=== PATIENT | female | born 1970 | race Caucasian/White ===

== ENCOUNTER 2019-03-25 14:10 | Inpatient (IN) | payer MEDICARE, MEDICAID ==
[~2019-03-25] VITALS: Ht 177.8 cm; Wt 79.4 kg
[2019-03-25] MEDS ORDERED: FLUP1TAB8 PO (14:38)
[2019-03-25] MEDS ORDERED: LEVO112T5 PO (14:38)
--- NOTE | 2019-03-25 14:40 | NUR ---
PILI, FROM [facility], PT REFUSED ADL'S, UNABLE TO CARE FOR HERSELF, DENIES SI/HI, TO ER BED 9, HOOKED TO MONITOR, AWAITING MD MADRID.
--- NOTE | 2019-03-25 14:50 | NUR ---
ILANA WESTBROOK AT BEDSIDE
[2019-03-25 15:05] LABS: APPEARANCE,URINE Slightly Cloudy (CLEAR); BILIRUBIN,URINE SMALL (NEGATIVE); BLOOD, URINE Large Ery/uL (NEGATIVE); KETONES,URINE Trace (NEGATIVE); LEUKOCYTE ESTERASE ,URINE Negative (NEGATIVE); NITRITE, URINE Negative (NEGATIVE); PH,URINE 6.5 (5.0-8.0); PROTEIN,URINE 100 mg/dl (NEGATIVE); UGLUCOSE Negative (NEGATIVE)
[2019-03-25 15:06] LABS: COLOR,URINE Dark Yellow (YELLOW)
[2019-03-25 15:09] LABS: BACTERIA,URINE Rare /HPF (None Seen); RBC,URINE TOO NUMEROUS TO COUN /HPF (0-2); SQUAMOUS EPITHELIAL CELL,UR Few /HPF (None Seen); WBC,URINE 0-3 /HPF (0-3)
--- NOTE | 2019-03-25 16:45 | NUR ---
REPORT GIVEN TO CAROL OF GPS UNIT
[2019-03-25 17:38] VITALS: BP 135/79
[2019-03-25] MEDS ORDERED: ACETAMINOPHEN 325 MG TABLET PO PRN (18:00)
[2019-03-25] MEDS ORDERED: MAG HYDROX/AL HYDROX/SIMETH 30 ML UDC PO PRN (18:00)
[2019-03-25] MEDS ORDERED: MAGNESIUM HYDROXIDE 30 ML UDC PO PRN (18:00)
[2019-03-25] MEDS ORDERED: BLOOD SUGAR DIAGNOSTIC 1 EACH STRIP IN ONE (18:00)
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
[2019-03-25] MEDS: ZOLPIDEM TARTRATE 5 MG TABLET PO PRN (22:16)
--- NOTE | 2019-03-26 06:38 | NUR ---
GPS RN NOTE: PATIENT NOTED WITH POSSIBLE MENSTRUAL CYCLE. TEST ORDER OBTAINED NOTED AND CARRIED OUT. PADS GIVEN TO THE PATIENT. PATIENT SHOWERED. WILL CONTINUE TO MONITOR Q15 MINS FOR SAFETY
--- NOTE | 2019-03-26 06:52 | NUR ---
GPS RN NOTE: REFUSED LABS DRAW, EXPLAINED THE RISK AND BENEFIT, PATIENT STILL REFUSED. WILL FOLLOW UP IN AM
[2019-03-26] MEDS: LEVOTHYROXINE SODIUM 175 MCG TABLET PO SCH (07:30)
[2019-03-26 08:00] VITALS: BP 122/88
--- NOTE | 2019-03-26 12:30 | NUR ---
found patient on the [address] way kneeling, praying, and talking rastafarian words. Dr Chaudhari in the nursing station and aware.
--- NOTE | 2019-03-26 15:35 | NUR ---
Group Note: SW encouraged pt to attend group therapy on 03/26/19 at 2:30pm discussing anger management for when they are in the hospital and for once they are discharged but pt unable to attend due to cognitive impairment.
--- NOTE | 2019-03-26 16:00 | NUR ---
refused vital signs. explained risk and benefits but still refused
--- NOTE | 2019-03-26 16:30 | NUR ---
Initial discharge planing: Pt is homeless. SW will explore housing and placement options for pt. SW will work with pt and MD to form a safe and proper discharge.
[2019-03-26] MEDS: risperiDONE 1 MG TABLET PO SCH (17:00)
--- NOTE | 2019-03-26 17:15 | NUR ---
patient refused pm medication risperidone. explained risk and benefits x3 but still refused. Addendum: 03/26/19 at 1717 by ENA GREWAL meds opened and wasted it on medication destroyer in medroom.
--- NOTE | 2019-03-26 17:29 | NUR ---
refused blood draw. explained risk and benefits but still refused
--- NOTE | 2019-03-26 18:20 | NUR ---
rn notes found patient on the hallway again kneeling and praying saying prayer.
[2019-03-26] MEDS: LORAZEPAM 0.5 MG TABLET PO PRN (19:56)
--- NOTE | 2019-03-26 19:56 | NUR ---
GPS RN NOTES SCREAMING,VERY ANXIOUS,MEDICATED WITH ATIVAN 1MG PO,TAKEN WELL
--- NOTE | 2019-03-26 20:35 | NUR ---
GPS RN NOTES OFFERED NIGHT SHOWER BUT REFUSED.
[2019-03-26] MEDS: DIVALPROEX SODIUM 125 MG CAP.SPRINK PO SCH (21:00)
--- NOTE | 2019-03-26 22:00 | NUR ---
GPS RN NOTES REFUSED DEPAKOTE,TOOK ONLY ATIVAN 1MG PO.
--- NOTE | 2019-03-27 06:37 | NUR ---
GPS RN NOTES AWAKE,OFFERED MORNING CARE BUT REFUSED,OFFERED TO CHANGE HER HOSPITAL GOWN WITH BLOOD STAIN,FROM HER MONTHLY PERIOD BUT REFUSED.CHARGE NURSE ROSALBA FLOWERS.CLAIMED SHE WILL CLEAN HERSELF AFTER AN HOUR.
--- NOTE | 2019-03-27 07:26 | NUR ---
OPENING PT WONDERING HALLS TALKING TO SELF REPORTED THAT PT IS ON PERIOD SECOND GOWN SOILED WITH BLOOD REFUSES TO CHANGE GOWN HAID DISHEVELED WILL CONTINUE TO MONITOR
[2019-03-27 08:00] VITALS: BP 129/69
[2019-03-27] MEDS: DIVALPROEX SODIUM 125 MG CAP.SPRINK PO SCH ×3 (08:12→21:25)
[2019-03-27] MEDS: LEVOTHYROXINE SODIUM 175 MCG TABLET PO SCH (08:12)
[2019-03-27] MEDS: risperiDONE 1 MG TABLET PO SCH (08:12)
--- NOTE | 2019-03-27 08:25 | NUR ---
PT REFUSES RISPERDAL STATES IT MAKES HER CONFUSED
[2019-03-27] MEDS ORDERED: OLANZAPINE 10 MG VIAL IM ONE (09:30)
--- NOTE | 2019-03-27 10:05 | NUR ---
pt took shower and refused green gwn now dressed in street clothes black pants blue top barefooted refuses socks
[2019-03-27] MEDS: BENZTROPINE MESYLATE (1 MG) 1 MG TABLET PO SCH ×2 (12:08→16:58)
[2019-03-27] MEDS: FLUPHENAZINE HCL 10 MG TABLET PO SCH ×2 (12:08→16:58)
[2019-03-27] MEDS: LORAZEPAM 0.5 MG TABLET PO PRN ×2 (12:09→21:43)
[2019-03-27] MEDS ORDERED: FLUPHENAZINE HCL 10 MG TABLET PO SCH (13:00)
[2019-03-27 16:00] VITALS: BP 119/76
--- NOTE | 2019-03-27 17:53 | NUR ---
CLOSING PT COOPERATIVE ALL DAY MOSTLY IN ROOM BED IN LOW POSITION KEPT SAFE ALL SHIFT PT COMPLIANT WITH MEDICATION PLAN. WILL GIVEN REPORT TO PM SHIFT FOR CONTINUITY OF CARE
[2019-03-27 18:09] VITALS: BP 119/76
--- NOTE | 2019-03-27 18:20 | NUR ---
NOTE AT 1209 ONLY GAVE 0.5 MG ATIVAN
--- NOTE | 2019-03-27 19:00 | NUR ---
opening: PT IS IN THE HALLWAY PACING BACK AND FORTH, TAKING TO HERSELF WHEN RECEIVED FROM THE AM SHIFT, NO S/S OR C/O PAIN AND DISCOMFORT, CONTINUE TO MONITOR PT AND MAINTAIN SAFETY THROUGHOUT THE SHIFT.
--- NOTE | 2019-03-28 00:53 | NUR ---
NURSES NOTES : AT ABOUT 2200 PT WAS GIVEN PRN MEDS ATIVAN 1M. DUE TO PT IS VERY RESTLESS, YELLING AND SHOUTING.
[2019-03-28] MEDS: DIVALPROEX SODIUM 125 MG CAP.SPRINK PO SCH ×2 (09:03→21:05)
[2019-03-28] MEDS: FLUPHENAZINE HCL 10 MG TABLET PO SCH ×3 (09:03→16:26)
[2019-03-28] MEDS: BENZTROPINE MESYLATE (1 MG) 1 MG TABLET PO SCH ×3 (09:03→16:26)
[2019-03-28] MEDS: LORAZEPAM 0.5 MG TABLET PO PRN ×2 (09:04→18:25)
[2019-03-28] MEDS: LEVOTHYROXINE SODIUM 175 MCG TABLET PO SCH (09:04)
[2019-03-28] MEDS: CLOTRIMAZOLE 1% 15 GM TUBE TP SCH (16:27)
[2019-03-29] MEDS: LORAZEPAM 0.5 MG TABLET PO PRN ×2 (03:34→19:51)
--- NOTE | 2019-03-29 07:56 | NUR ---
GPS RN NOTE PT IS IN THE HALLWAY PACING BACK AND FORTH, TAKING TO HERSELF WHEN RECEIVED FROM THE AM SHIFT, NO S/S OR C/O PAIN AND DISCOMFORT, CONTINUE TO MONITOR PT FOR SAFETY AND BEHAVIOR Q15 MIN ,RESPIRATION EVEN AND UNLABORED ,BED IN LOWEST AND LOCKED POSITION, HAVING BREAKFAST , ABLE TO EAT SELF
[2019-03-29 08:00] VITALS: BP 135/71
[2019-03-29] MEDS: LEVOTHYROXINE SODIUM 175 MCG TABLET PO SCH (08:51)
[2019-03-29] MEDS: BENZTROPINE MESYLATE (1 MG) 1 MG TABLET PO SCH ×3 (08:52→16:40)
[2019-03-29] MEDS: DIVALPROEX SODIUM 125 MG CAP.SPRINK PO SCH ×2 (08:54→21:33)
[2019-03-29] MEDS: CLOTRIMAZOLE 1% 15 GM TUBE TP SCH ×2 (08:54→16:42)
[2019-03-29] MEDS: FLUPHENAZINE HCL 10 MG TABLET PO SCH ×3 (08:55→16:40)
--- NOTE | 2019-03-29 10:41 | NUR ---
GPS RN NOTE LOOK ANXIOUS ,OFFERED ATIVAN BUT REFUSED .OFFERED X2 ,WILL CONT TO MONITOR CLOSELY
--- NOTE | 2019-03-29 11:39 | NUR ---
GPS RN NOTE SPOKE WITH DR SHANE PSYCHIATRIST NOTIFIED THAT PATIENT HAS SHAKING HANDS, REFUSING ATIVAN PRN STATED TO TRY AGAIN AND MONITOR CLOSELY
--- NOTE | 2019-03-29 14:11 | NUR ---
GPS RN NOTE WALKING IN HALLWAY AND OCCASIONALLY GET AGITATED, WILL CONT TO MONITOR CLOSELY
[2019-03-29 16:00] VITALS: BP 125/68
--- NOTE | 2019-03-29 18:06 | NUR ---
GPS RN NOTE PATIENT IN DINNING ROOM , HAVING DINNER,ABLE TO EAT SELF ,ALL NEEDS ATTENDED ,WILL CONT TO MONITOR CLOSELY
--- NOTE | 2019-03-29 20:30 | NUR ---
RN NOTES: PT. RFUSED WEEKLY SKIN REASSESSMENT AND PHOTOGRAPH ,ENCOURAGED ,EXPLAINED RISKS AND BENEFITS STILL REFUSED, PT. STRONGLY REFUSED AND PT. BEHAVIOR VERY AGGRESSIVE, PARANOID, UNCOOPERATIVE,PARANOID, PACING IN HALLWAY.
[2019-03-29 20:35] VITALS: BP 122/88
[2019-03-29] MEDS: ZOLPIDEM TARTRATE 5 MG TABLET PO PRN (23:00)
[2019-03-30 08:00] VITALS: BP 153/79
[2019-03-30] MEDS: BENZTROPINE MESYLATE (1 MG) 1 MG TABLET PO SCH ×3 (08:34→17:03)
[2019-03-30] MEDS: DIVALPROEX SODIUM 125 MG CAP.SPRINK PO SCH ×2 (08:34→21:02)
[2019-03-30] MEDS: LEVOTHYROXINE SODIUM 175 MCG TABLET PO SCH (08:34)
[2019-03-30] MEDS: CLOTRIMAZOLE 1% 15 GM TUBE TP SCH ×2 (08:38→17:00)
[2019-03-30] MEDS: FLUPHENAZINE HCL 10 MG TABLET PO SCH ×5 (09:00→21:02)
--- NOTE | 2019-03-30 11:13 | NUR ---
PC Hearing Notification: Pt stated that there is no one to notify about the PC hearing that will take place today.
[2019-03-30] MEDS: LORAZEPAM 0.5 MG TABLET PO PRN (13:13)
--- NOTE | 2019-03-30 14:59 | NUR ---
GROUP NOTE: Pt was invited to attend group therapy on 03/30/19 at 1:30pm but was unable to participate as pt is cognitively impaired and confused.
[2019-03-30] MEDS: ZOLPIDEM TARTRATE 5 MG TABLET PO PRN (22:27)
[2019-03-30 23:00] VITALS: BP 123/74
[2019-03-31] MEDS: LEVOTHYROXINE SODIUM 175 MCG TABLET PO SCH (07:30)
[2019-03-31] MEDS: CLOTRIMAZOLE 1% 15 GM TUBE TP SCH ×2 (08:26→16:37)
[2019-03-31] MEDS: FLUPHENAZINE HCL 10 MG TABLET PO SCH ×4 (09:30→21:00)
[2019-03-31] MEDS: BENZTROPINE MESYLATE (1 MG) 1 MG TABLET PO SCH ×3 (09:30→16:35)
[2019-03-31] MEDS: DIVALPROEX SODIUM 125 MG CAP.SPRINK PO SCH ×2 (09:30→21:00)
--- NOTE | 2019-03-31 09:36 | NUR ---
WHITNEY contacted [facility] [place] [phone] and left a voicemail with Donovan Azar Engine Dynamometer Tester for callback to confirm conservatorship.
--- NOTE | 2019-03-31 11:54 | NUR ---
SNF REFERRAL: WHITNEY faxed SNF referral to [facility] Address: [address] [place] [address] for review.
--- NOTE | 2019-03-31 14:50 | NUR ---
SW received a call stating pt has been accepted to [facility] Address: [address] [place] [address]
[2019-03-31 15:55] VITALS: BP 124/66
[2019-03-31 20:30] VITALS: BP 128/76
--- NOTE | 2019-03-31 22:42 | NUR ---
gps rn notes: Patient refused night meds, explained the risk and benefits x 3 attempts but patient still refused and stated i dont want it, im not sick. Will continue to monitor q15 mins for safety
[2019-04-01] MEDS: LORAZEPAM 0.5 MG TABLET PO PRN (06:25)
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
--- NOTE | 2019-04-01 07:00 | NUR ---
PATIENT CONTRACTED FOR SAFETY, CALM, COOPERATIVE, BUT STILL A LITTLE BIT PARANOID AND ANXIOUS, WILL CONTINUE TO MONITOR Q15 MINS FOR SAFETY Addendum: 04/01/19 at 0755 by ELSIE EWING II, RN PATIENT WAS RELEASED TO [facility] AT THIS TIME.
[2019-04-01 08:00] VITALS: BP 100/79
[2019-04-01] MEDS: BENZTROPINE MESYLATE (1 MG) 1 MG TABLET PO SCH ×3 (09:35→17:09)
[2019-04-01] MEDS: LEVOTHYROXINE SODIUM 175 MCG TABLET PO SCH (09:36)
[2019-04-01] MEDS: FLUPHENAZINE HCL 10 MG TABLET PO SCH ×5 (09:36→23:20)
[2019-04-01] MEDS: DIVALPROEX SODIUM 125 MG CAP.SPRINK PO SCH ×3 (09:36→23:16)
[2019-04-01] MEDS: CLOTRIMAZOLE 1% 15 GM TUBE TP SCH ×2 (09:37→17:10)
--- NOTE | 2019-04-01 14:49 | NUR ---
pt alert, stable and visible on the unit. pt seen pacing and talking to self. pt is med compliant and isolative. pt is easily agitated when trying to engage in social interaction. pt is confuse and will continue to monitor.
[2019-04-01 16:00] VITALS: BP 115/70
[2019-04-01 20:11] VITALS: BP 127/87
--- NOTE | 2019-04-01 23:21 | NUR ---
gps rn note: Patient noted on and off refusal of medication but after explanation provided, patient finally decided to take her medication. Will continue to monitor q15 mins for safety
[2019-04-02] MEDS: LEVOTHYROXINE SODIUM 175 MCG TABLET PO SCH (07:30)
[2019-04-02] MEDS: CLOTRIMAZOLE 1% 15 GM TUBE TP SCH (07:59)
[2019-04-02 08:00] VITALS: BP 113/66
[2019-04-02] MEDS: BENZTROPINE MESYLATE (1 MG) 1 MG TABLET PO SCH (08:04)
[2019-04-02] MEDS: FLUPHENAZINE HCL 10 MG TABLET PO SCH (08:05)
[2019-04-02] MEDS: DIVALPROEX SODIUM 125 MG CAP.SPRINK PO SCH (08:05)
--- NOTE | 2019-04-02 09:27 | NUR ---
DR. ALVARADO GAVE AN ORDER TO D/C HOLD AND D/C TO [facility] AND TO FOLLOW UP WITH PSYCH AND MEDICAL DOCTORS. PT. WITHOUT DISTRESS, DENIES SUICIDAL AND HOMICIDAL.
--- NOTE | 2019-04-02 10:05 | NUR ---
GPS RN NOTES PT DISCHARGED WITH PARAMEDICS TO [facility]. PT RECEIVED DISCHARGE INSTRUCTIONS/PRESCRIPTION/BELONGINGS IN HAND/BELONGINGS LIST SIGNED. NO PICS OF WOUND-PT REFUSED. REPORT CALLED IN TO BOBBY NAVARRO AT [facility]. SAFETY MEASURES MAINTAINED.
--- NOTE | 2019-04-02 10:19 | NUR ---
DISCHARGE NOTE: Pt was discharged at 10:00am via [facility] to [facility] ([facility]) [address] [place] [address]. [place] [address] P: [phone]. Pt has no family to notify. Pts mood is paranoid with congruent affect. Pt responding to internal stimuli at baseline. Pt denied suicidal/homicidal ideation. Pt will be under the care of Psychiatrist: Dr. Chaudhari [address] [facility] [address], [place] [address] [phone] and Water Resources Technical Officer: Dr Reyes Address: [address] [facility] [address] [address] [phone]. The multidisciplinary exit care form was done, printed, signed, and given to the patient.
== END 2019-04-02 10:05 | DRG 885 ==
LOC: ER 14:23 → GPS 16:27
PROVIDERS: ADMIT Psychiatry & Neurology Psychiatry; ATTEND Internal Medicine
DX: F31.2 Bipolar disorder, current episode manic severe with psychotic features (principal); F29 Unspecified psychosis not due to a substance or known physiological condition; Z79.899 Other long term (current) drug therapy; Z73.6 Limitation of activities due to disability; R31.9 Hematuria, unspecified; Z91.19 Patient's noncompliance with other medical treatment and regimen; E03.9 Hypothyroidism, unspecified
CPT/HCPCS: 80305; 81000-TC; 84703-TC; 87081-TC; J3490

== ENCOUNTER 2019-04-12 21:30 | Inpatient (IN) | payer MEDICARE, MEDICAID ==
[~2019-04-12] VITALS: Ht 170.2 cm; Wt 95.3 kg
[~2019-04-12 21:30] MED LIST: FLUP1TAB8 PO; LEVO112T5 PO
[2019-04-12] MEDS ORDERED: LORA-258 PO (22:02)
[2019-04-12] MEDS ORDERED: DIVA250T4 PO (22:02)
[2019-04-12] MEDS ORDERED: BENZ1TAB7 PO (22:02)
[2019-04-12] MEDS ORDERED: ACET325T53 PO (22:02)
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
--- NOTE | 2019-04-12 22:23 | NUR ---
URINE COLLECTED VIA STRAIGHT CATH AND SENT TO LAB
[2019-04-12 22:28] LABS: APPEARANCE,URINE Clear (CLEAR); BILIRUBIN,URINE Negative (NEGATIVE); BLOOD, URINE Negative Ery/uL (NEGATIVE); COLOR,URINE Yellow (YELLOW); KETONES,URINE Negative (NEGATIVE); LEUKOCYTE ESTERASE ,URINE Negative (NEGATIVE); NITRITE, URINE Negative (NEGATIVE); PROTEIN,URINE Negative (NEGATIVE); UGLUCOSE Negative (NEGATIVE); UROBILINOGEN,URINE 0.2 EU/dL (0.2)
[2019-04-12 22:28] LABS: BASOPHILS # (AUTO) 0.1 /CMM (0.0-0.2); BASOPHILS % (AUTO) 0.9 % (0.0-2.0); EOSINOPHILS % (AUTO) 0.4 % (0.0-6.0); HEMATOCRIT 29 % (33-45); HEMOGLOBIN 9.7 g/dL (11.5-14.8); LYMPHOCYTES # (AUTO) 1.7 /CMM (0.8-4.8); LYMPHOCYTES % (AUTO) 23.7 % (20.0-44.0); MEAN CORPUSCULAR HGB CONC 34 g/dl (31.0-36.0); MEAN CORPUSCULAR VOLUME 90 fL (82-100); MONOCYTES # (AUTO) 0.7 /CMM (0.1-1.30); MONOCYTES % (AUTO) 9.9 % (2.0-12.0); NEUTROPHILS # (AUTO) 4.6 /CMM (1.8-8.9); NEUTROPHILS % (AUTO) 65.1 % (43.0-81.0); PLATELET COUNT (AUTO) 277 /CMM (150-450); WHITE BLOOD COUNT (AUTO) 7.1 K/uL (4.3-11.0)
[2019-04-12 22:36] LABS: CALCIUM, SERUM 8.8 mg/dL (8.5-10.1); CARBON DIOXIDE 27 mmol/L (21-32); CHLORIDE 104 mmol/L (98-107); CREATININE 0.6 mg/dL (0.6-1.3); GLUCOSE 103 mg/dL (74-106); POTASSIUM 3.9 mmol/L (3.5-5.1); SODIUM SERUM 137 mmol/L (136-145); UREA NITROGEN, BLOOD 13 mg/dL (7-18)
[2019-04-12 22:42] LABS: ALANINE AMINOTRANSFERASE 34 U/L (12-78); ALBUMIN 3.5 g/dL (3.4-5.0); ALCOHOL, BLOOD < 3 mg/dL (0-0); ALKALINE PHOSPHATASE 51 U/L (46-116); ASPARTATE AMINOTRANSFERASE 20 U/L (15-37); BILIRUBIN,DIRECT 0.1 mg/dL (0.0-0.2); BILIRUBIN,TOTAL 0.3 mg/dL (0.2-1.0); TOTAL PROTEIN, SERUM 6.6 g/dL (6.4-8.2)
[2019-04-12 22:44] LABS: ACETAMINOPHEN 0 ug/ml (10-30); SALICYLATE 1.3 mg/dL (2.8-20.0)
--- NOTE | 2019-04-12 23:33 | NUR ---
LASTING FLOORWORKER BOONE STATES WILL BE HERE IN A WHILE
--- NOTE | 2019-04-13 00:41 | NUR ---
REPORT GIVEN TO POWER CASTLE FOR CONTINUATION OF CARE.
[2019-04-13] MEDS ORDERED: LORAZEPAM 1 MG TABLET ONE (00:42)
[2019-04-13] MEDS ORDERED: LORAZEPAM 1 MG TABLET PO ONE (01:00)
[2019-04-13] MEDS ORDERED: LORAZEPAM INJ 2 MG/ML VIAL IM ONE (01:00)
[2019-04-13] MEDS ORDERED: LORAZEPAM INJ 2 MG/ML VIAL ONE (01:29)
--- NOTE | 2019-04-13 02:15 | NUR ---
PT TRANSPORTED TO [facility] BY EMT
[2019-04-13] MEDS ORDERED: ACETAMINOPHEN 325 MG TABLET PO PRN ×2 (02:30→14:00)
[2019-04-13] MEDS ORDERED: MAG HYDROX/AL HYDROX/SIMETH 30 ML UDC PO PRN (02:30)
[2019-04-13] MEDS ORDERED: MAGNESIUM HYDROXIDE 30 ML UDC PO PRN (02:30)
[2019-04-13] MEDS ORDERED: BLOOD SUGAR DIAGNOSTIC 1 EACH STRIP IN ONE (02:30)
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
[2019-04-13 03:12] VITALS: BP 130/70
--- NOTE | 2019-04-13 09:29 | NUR ---
WHITNEY contacted [facility] [address] [place] [phone] and left a voicemail with Donovan Azar Shellfish Weigher for callback to confirm conservatorship.
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
[2019-04-13] MEDS: FLUPHENAZINE HCL 10 MG TABLET PO SCH ×4 (10:00→21:00)
[2019-04-13] MEDS: BENZTROPINE MESYLATE (1 MG) 1 MG TABLET PO SCH ×2 (10:00→17:00)
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
--- NOTE | 2019-04-13 10:18 | NUR ---
RT Patient refused ekg at this time. Jes Patel aware. Will attempt again later in shift.
--- NOTE | 2019-04-13 15:51 | NUR ---
GROUP NOTE: SW encouraged pt to participate in group therapy on this present day discussing "discharge planning." Pt is unable to participate due to pt actively hallucinating and being paranoid and not wanting to talk to SW.
[2019-04-13] MEDS: LORAZEPAM 1 MG TABLET PO PRN (19:33)
[2019-04-13] MEDS: DIVALPROEX SODIUM 125 MG CAP.SPRINK PO SCH (21:00)
[2019-04-13] MEDS: ZOLPIDEM TARTRATE 10 MG TABLET PO PRN (22:29)
--- NOTE | 2019-04-14 07:04 | NUR ---
RN NOTES : PT. BEHAVIOUR VERY UNCOOPERATIVE , PARANOID, HYPERVERBAL LOUD, NOT FOLLOWING ANY REDIRECTIONS , DURING AGILE DEVELOPER REFUSED VITAL SIGNS , REFUSED NIGHT MEDS, REFUSED AM LABS , REFUSING CARE , ENCOURAGED X3 EXPLAINED RISKS AND BENEFITS, STILL STRONGLY REFUSED , WILL CONTINUITY WITH CARE .
[2019-04-14] MEDS: LEVOTHYROXINE SODIUM 112 MCG TABLET PO SCH (08:27)
[2019-04-14] MEDS: FLUPHENAZINE HCL 10 MG TABLET PO SCH ×5 (08:27→21:00)
[2019-04-14] MEDS: BENZTROPINE MESYLATE (1 MG) 1 MG TABLET PO SCH ×3 (08:27→18:00)
[2019-04-14] MEDS: DIVALPROEX SODIUM 125 MG CAP.SPRINK PO SCH ×2 (08:27→21:00)
--- NOTE | 2019-04-14 10:49 | NUR ---
ACTING OUT,YELLING,DR. ALVARADO HERE,HIT CHIP TESTER AND PRIMARY RN.INJECTION ORDERED BY DR. ALVARADO.MED GIVEN,PT IN BED AT THIS TIME,REFUSING VITAL SIGNS.
[2019-04-14] MEDS ORDERED: OLANZAPINE 10 MG VIAL IM ONE (11:00)
--- NOTE | 2019-04-14 15:52 | NUR ---
GROUP NOTE: SW encouraged pt to participate in group therapy on this present day discussing "discharge planning." Pt is unable to participate in group therapy due to being asleep after receiving an IM this morning due to her aggressive behavior.
--- NOTE | 2019-04-14 17:06 | NUR ---
REFUSED MEDS ALL DAY.
[2019-04-14] MEDS: LORAZEPAM 1 MG TABLET PO PRN (17:59)
--- NOTE | 2019-04-14 18:02 | NUR ---
REFUSED MEDS ALL DAY,NOW GETTING EXTREMELY AGITATED AND AGREED WITH LUGGER TO TAKE MEDS.ADDITIONALLY GIVEN ATIVAN 1 MG PO.
--- NOTE | 2019-04-14 20:00 | NUR ---
PATIENT ASLEEP DURING INITIAL ROUNDING. NO APPARENT DISTRESS NOTED. BREATHING NON-LABORED. ENVIRONMENTAL SAFETY CHECK DONE. BED ALARM ON, BED LOCKED AND PLACED ON LOWEST POSITION FALL RISK. SAFETY PRECAUTION OBSERVED. WILL CONTINUE TO MONTOR Q 15 MINS. FOR SAFETY AND BEHAVIOR.
[2019-04-14 20:47] VITALS: BP 116/61
--- NOTE | 2019-04-14 22:28 | NUR ---
PATIENT AWAKE, OFFERED HER NIGHT MEDS X2, AND REFUSED. SHE STATED," NO, I DON;T NEED THEM NOW, NOT AT ALL TIME."
--- NOTE | 2019-04-14 22:35 | NUR ---
PATIENT TALKS TO HERSELF NOW, HYPERVERBAL, CONFUSED, AMBULATES INSIDE HER ROOM, LOUD.
--- NOTE | 2019-04-14 22:41 | NUR ---
ACCUCHECK X1 = 108 MG.DL.
--- NOTE | 2019-04-14 23:28 | NUR ---
AMBIEN 10 MG CAP PO GIVEN.
--- NOTE | 2019-04-15 03:58 | NUR ---
PATIENT STARTS TALKING TO HERSELF AGAIN. AWAKE, RESTING IN BED.
[2019-04-15] MEDS: LORAZEPAM 1 MG TABLET PO PRN ×2 (04:03→21:22)
--- NOTE | 2019-04-15 04:06 | NUR ---
ATIVAN 1 MG TAB PO GIVEN FOR AGITATION, PATIENT IS LOUD AND AGITATED, HYPERVERBAL.
--- NOTE | 2019-04-15 07:03 | NUR ---
TOOK SLEEPING PILL PER REQUEST, SLEPT FOR 5 HRS. IRRITABLE, AGGRESSIVE, TALKS TO HERSELF, EAGER TO LEAVE HOME. HAD SHOWER. WILL CONTINUE TO MONITOR.
[2019-04-15 08:00] VITALS: BP 138/89
[2019-04-15] MEDS: BENZTROPINE MESYLATE (1 MG) 1 MG TABLET PO SCH ×2 (08:25→18:02)
[2019-04-15] MEDS: FLUPHENAZINE HCL 10 MG TABLET PO SCH ×3 (08:25→18:03)
[2019-04-15] MEDS: DIVALPROEX SODIUM 125 MG CAP.SPRINK PO SCH ×2 (08:25→21:00)
[2019-04-15] MEDS: LEVOTHYROXINE SODIUM 112 MCG TABLET PO SCH (08:25)
--- NOTE | 2019-04-15 16:20 | NUR ---
GROUP NOTE: SW encouraged pt to participate in group therapy on 04/15/19 at 2pm discussing depression. Pt is unable to participate in group therapy due to being aggressive and displaying disruptive behaviors.
--- NOTE | 2019-04-15 16:54 | NUR ---
UNCOOPERATIVE,RANTING AT TIMES IN HALLWAY.
--- NOTE | 2019-04-15 19:10 | NUR ---
REFUSED AFTERNOON VITALS.
[2019-04-15 20:00] VITALS: BP 135/90
--- NOTE | 2019-04-15 20:00 | NUR ---
RN NOTES PT. REFUSED TO HAVE HER TEMPERATURE CHECKED.. PT IS PACING IN THE HALLWAY
[2019-04-15 21:14] VITALS: BP 135/90
--- NOTE | 2019-04-15 21:22 | NUR ---
RN NOTES PT REFUSED HER DEPAKOTE AND ASKED FOR HER ATIVAN- ATIVAN 1 MG PO GIVEN ORDERED, V/S STABLE
[2019-04-16] MEDS: BENZTROPINE MESYLATE (1 MG) 1 MG TABLET PO SCH ×2 (08:11→17:57)
[2019-04-16] MEDS: DIVALPROEX SODIUM 125 MG CAP.SPRINK PO SCH ×2 (08:11→20:48)
[2019-04-16] MEDS: LEVOTHYROXINE SODIUM 112 MCG TABLET PO SCH (08:11)
[2019-04-16] MEDS: FLUPHENAZINE HCL 10 MG TABLET PO SCH ×3 (08:11→17:57)
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
[2019-04-16] MEDS ORDERED: OLANZAPINE 10 MG VIAL IM ONE (19:00)
[2019-04-16] MEDS: ZOLPIDEM TARTRATE 10 MG TABLET PO PRN (21:27)
[2019-04-16] MEDS: LORAZEPAM 1 MG TABLET PO PRN (22:28)
[2019-04-17 08:00] VITALS: BP 143/90
[2019-04-17] MEDS: DIVALPROEX SODIUM 125 MG CAP.SPRINK PO SCH ×2 (08:38→20:56)
[2019-04-17] MEDS: FLUPHENAZINE HCL 10 MG TABLET PO SCH ×5 (08:38→20:56)
[2019-04-17] MEDS: BENZTROPINE MESYLATE (1 MG) 1 MG TABLET PO SCH ×2 (08:38→16:56)
[2019-04-17] MEDS: LEVOTHYROXINE SODIUM 112 MCG TABLET PO SCH (08:39)
--- NOTE | 2019-04-17 09:32 | NUR ---
GPS/RN-NOTES PROLIXIN 10MG P.O ALREADY ADMINISTER EARLIER.
[2019-04-17 16:00] VITALS: BP 133/79
[2019-04-17] MEDS: LORAZEPAM 1 MG TABLET PO PRN (19:29)
[2019-04-17] MEDS: ZOLPIDEM TARTRATE 10 MG TABLET PO PRN (23:06)
[2019-04-18 08:00] VITALS: BP 121/76
[2019-04-18] MEDS: DIVALPROEX SODIUM 125 MG CAP.SPRINK PO SCH ×2 (09:00→21:07)
[2019-04-18] MEDS: BENZTROPINE MESYLATE (1 MG) 1 MG TABLET PO SCH ×2 (09:00→16:37)
[2019-04-18] MEDS: LEVOTHYROXINE SODIUM 112 MCG TABLET PO SCH (09:00)
[2019-04-18] MEDS: FLUPHENAZINE HCL 10 MG TABLET PO SCH ×4 (09:00→21:07)
--- NOTE | 2019-04-18 09:52 | NUR ---
RN note: Patient refused all of 0900 meds, after multiple attempts, pt continues to refuse Addendum: 04/18/19 at 1405 by JEWEL BENDER RN PATIENT REFUSED 1300 MEDS
--- NOTE | 2019-04-18 16:37 | NUR ---
PATIENT REFUSED 1700 MEDS
[2019-04-18] MEDS: LORAZEPAM 1 MG TABLET PO PRN (19:37)
[2019-04-18 20:12] VITALS: BP 134/98
[2019-04-18 23:00] VITALS: BP 130/76
[2019-04-18] MEDS: ZOLPIDEM TARTRATE 10 MG TABLET PO PRN (23:32)
--- NOTE | 2019-04-19 07:14 | NUR ---
RN NOTES : DURING SHIFT PT. BEHAVIOR VERY UNCOOPERATIVE , PARANOID ,DISHELVED, NEEDY, INTRUSIVE WITH STAFF , NOT FOLLOWING ANY REDIRECTIONS ,ENDORSE TO DAY SHIFT FOR CONITUITY OF CARE .
[2019-04-19] MEDS: LORAZEPAM 1 MG TABLET PO PRN (07:43)
--- NOTE | 2019-04-19 07:46 | NUR ---
RN NOTE- PT W ANXIETY, LOUD VOICE AND AGITATION. ATIVAN 1 MG PRN GIVEN
[2019-04-19 08:00] VITALS: BP 139/93
[2019-04-19] MEDS: FLUPHENAZINE HCL 10 MG TABLET PO SCH ×4 (08:30→21:33)
[2019-04-19] MEDS: BENZTROPINE MESYLATE (1 MG) 1 MG TABLET PO SCH ×2 (08:30→17:01)
[2019-04-19] MEDS: DIVALPROEX SODIUM 125 MG CAP.SPRINK PO SCH ×2 (08:30→21:33)
[2019-04-19] MEDS: LEVOTHYROXINE SODIUM 112 MCG TABLET PO SCH (08:31)
[2019-04-19 16:00] VITALS: BP 138/89
[2019-04-19 19:57] VITALS: BP 135/98
[2019-04-19] MEDS: ZOLPIDEM TARTRATE 10 MG TABLET PO PRN (21:59)
--- NOTE | 2019-04-20 05:32 | NUR ---
GPS-RN PATIENT REFUSED SKIN FULL BODY ASSESSMENT DESPITE EXPLAINING THE RISKS AND BENEFITS BUT PT. STILL REFUSED.
--- NOTE | 2019-04-20 08:52 | NUR ---
WHITNEY FAXED SNF REFERRAL to [facility] Address: [address] [place] [address] for review.
--- NOTE | 2019-04-20 09:00 | NUR ---
ORIENTED X2-NO COMPLAINTS OFFERED,STABLE,MED COMPLIANT BUT WITH RELUCTANCE.
--- NOTE | 2019-04-20 09:00 | NUR ---
REFUSED AM VS.
[2019-04-20] MEDS: FLUPHENAZINE HCL 10 MG TABLET PO SCH ×4 (09:11→21:11)
[2019-04-20] MEDS: DIVALPROEX SODIUM 125 MG CAP.SPRINK PO SCH ×2 (09:11→21:11)
[2019-04-20] MEDS: BENZTROPINE MESYLATE (1 MG) 1 MG TABLET PO SCH ×2 (09:12→17:29)
[2019-04-20] MEDS: LEVOTHYROXINE SODIUM 112 MCG TABLET PO SCH (09:12)
--- NOTE | 2019-04-20 15:10 | NUR ---
GROUP NOTE: SW encouraged pt to participate in group on this present day discussing "gaining insight." Pt unable to participate due to psychosis and actively hallucinating. Pt unable to participate in a group setting.
--- NOTE | 2019-04-20 15:45 | NUR ---
SW received a call from Shane, buildings and grounds coordinator from [facility] Address: [address] [place] [address] who stated that pt has been accepted to the facility.
[2019-04-20 16:00] VITALS: BP 137/80
[2019-04-20 18:39] VITALS: BP 138/89
--- NOTE | 2019-04-20 18:59 | NUR ---
NO CHANGE IN STATUS.
[2019-04-20] MEDS: LORAZEPAM 1 MG TABLET PO PRN (19:36)
[2019-04-20 20:26] VITALS: BP 158/71
[2019-04-20] MEDS: ZOLPIDEM TARTRATE 10 MG TABLET PO PRN (22:12)
[2019-04-21] MEDS: DIVALPROEX SODIUM 125 MG CAP.SPRINK PO SCH (08:13)
[2019-04-21] MEDS: BENZTROPINE MESYLATE (1 MG) 1 MG TABLET PO SCH (08:13)
[2019-04-21] MEDS: LEVOTHYROXINE SODIUM 112 MCG TABLET PO SCH (08:13)
[2019-04-21] MEDS: FLUPHENAZINE HCL 10 MG TABLET PO SCH ×2 (08:13→12:01)
--- NOTE | 2019-04-21 09:30 | NUR ---
SW received a call from Shane, admissions manager rn from [facility] Address: [address] [place] [address] who stated that currently there is no bed available for pt.
--- NOTE | 2019-04-21 09:49 | NUR ---
WHITNEY FAXED SNF referral to [facility] Address: [address] [facility], [place] [address] for review.
--- NOTE | 2019-04-21 11:00 | NUR ---
DISCHARGE NOTE: Pt will be discharging at 3:30pm via [facility] to [facility] () [address] [facility] [address] [phone]. Pt has no family to notify. Pts mood is euthymic with congruent affect. Pt denied visual/auditory hallucinations and denied suicidal/homicidal ideation. Pt will be under the care of Psychiatrist: Dr. Modesto Motta [address] [address], [place] [address] [phone] and Attacher: Dr. Sergo Santos [id number] [phone] . The multidisciplinary exit care form was done, printed, signed, and given to the patient.
--- NOTE | 2019-04-21 15:11 | NUR ---
GROUP NOTE: SW encouraged pt to participate in group on this present day discussing "family support." Pt unable to participate due to psychosis and actively hallucinating. Pt unable to participate in a group setting.
--- NOTE | 2019-04-21 16:25 | NUR ---
NURSING DISCHARGE NOTE: PATIENT WAS DISCHARGED TO [facility] LOCATED AT [address] [facility] [place] [id number] . PT HAS NO FAMILY TO NOTIFY. REPORT WAS GIVEN TO ADRIENNE BOGGS. PATIENT IS A&OX2-3, CALM, COOPERATIVE, PATIENT IS IN STABLE CONDITION. VSS. NO ACUTE DISTRESS NOTED. NO COMPLAINTS. COMPLIANT WITH MEDICATION MANAGEMENT. COOPERATIVE WITH PLAN OF CARE. PSYCHIATRIC TREATMENT PLANS MET. MEDICAL TREATMENT PLANS DEFERRED FOR CONTINUAL MONITORING. DENIES SI/HI AT THE TIME OF DISCHARGE. PT REFUSED SKIN ASSESSMENT AND PICTURES. EDUCATED PATIENT ABOUT AFTERCARE WITH COPY PROVIDED. RETURNED PERSONAL BELONGINGS TO PATIENT. PT HAS BEEN MEDICALLY CLEARED FOR DISCHARGE BY DR. MURCIA WITH ORDER TO CONTINUE ALL MEDS. MEDICATIONS RECONCILED WITH DR. ALVARADO ALONG WITH PSYCHIATRIC DISCHARGE ORDERS. DISCHARGE PAPERWORK SIGNED. FOR FOLLOW UP WITH PSYCHIATRIST AND WATCH TRAIN ASSEMBLER WITHIN 1 WEEK. PATIENT LEFT THE [facility] AT 1625 ON A GURNEY VIA AMBULNZ ACCOMPANIED BY 2 IRRIGATION SYSTEM INSTALLER.
== END 2019-04-21 16:25 | DRG 885 ==
LOC: ER 21:32 → GPS 04-13 00:37
PROVIDERS: ADMIT Psychiatry & Neurology Psychiatry; ATTEND Registered Nurse
DX: F25.0 Schizoaffective disorder, bipolar type (principal); F23 Brief psychotic disorder; E03.9 Hypothyroidism, unspecified; F41.9 Anxiety disorder, unspecified; F31.9 Bipolar disorder, unspecified; G62.9 Polyneuropathy, unspecified; E66.9 Obesity, unspecified; Z68.32 Body mass index [BMI] 32.0-32.9, adult
CPT/HCPCS: 36415; 80048-TC; 80076-TC; 80305; 81000-TC; 84703-TC; 85025-TC; 87081-TC; G0480; J2060; J3230; J3490